=== PATIENT | female | born 1935 | race African-American/Black ===

== ENCOUNTER 2018-02-17 11:25 | Emergency (ER) | payer OTHER ==
[2018-02-17] MEDS: IBUPROFEN 600 MG TABLET. PO (11:52)
[2018-02-17] MEDS ORDERED: IV NORMAL SALINE 1000ML BAG 1,000 ML IV (12:15)
== END 2018-02-17 12:53 | disposition home or self-care (01) ==
LOC: ER 11:25
DX: S16.1XXA Strain of muscle, fascia and tendon at neck level, initial encounter (principal); S40.212A Abrasion of left shoulder, initial encounter; V43.52XA Car driver injured in collision with other type car in traffic accident, initial encounter; Y93.89 Activity, other specified; Y99.8 Other external cause status; Y92.488 Other paved roadways as the place of occurrence of the external cause
CPT/HCPCS: 71045; 72040; 99284